=== PATIENT | male | born 1975 ===

== ENCOUNTER 2017-07-04 06:40 | Day surgery (SDC) | payer OTHER ==
[2017-07-04] VITALS (17 sets, daily range): BP systolic 116–147; BP diastolic 68–94
[~2017-07-04] VITALS: Ht 170.2 cm; Wt 90.7 kg
[~2017-07-04 06:40] MED LIST: NKM; ceFAZolin 1gm in D5W 55ml IVPB ONE; celeBREX 200mg Cap **SURGERY PATIENTS ONLY ORAL ONE; oxyCONTIN 20mg tab ORAL ONE
[2017-07-04] MEDS ORDERED: Bupivacaine 0.25% Inj 30ml INJ ONE (07:03)
[2017-07-04] MEDS ORDERED: Lidocaine 1% 10mg/ml/Epi 0.005mg/ml 30ml vial INJ ONE (07:04)
[2017-07-04] MEDS ORDERED: Kenalog-40 1ml Vial ONE (07:04)
[2017-07-04] MEDS ORDERED: Morphine Sulfate PF 10 ML ONE (07:04)
[2017-07-04] MEDS ORDERED: Ketorolac 30mg Inj ONE ×2 (07:04→09:00)
[2017-07-04] MEDS ORDERED: EPINEPHrine 1mg/1ml Amp ONE (07:04)
[2017-07-04] MEDS ORDERED: Propofol 200mg/20ml IV ONE ×2 (08:45→09:00)
[2017-07-04] MEDS ORDERED: Sterile Water Irrig 1000ml IRRIG ONE (09:00)
[2017-07-04] MEDS ORDERED: fentaNYL 100 mcg/2 mL IV ONE (09:00)
[2017-07-04] MEDS ORDERED: NS Irrig 1000ml ONE (09:00)
[2017-07-04] MEDS ORDERED: LR 1000ml ONE (09:00)
[2017-07-04] MEDS ORDERED: Midazolam 2mg/2ml Inj ONE (09:00)
[2017-07-04] MEDS ORDERED: LR 1000ml 1,000 ML IVLG SCH (09:26)
--- NOTE | 2017-07-04 09:26 | Anethesia Preoperative Eval ---
Anesthesia Pre-op PMH/ROS General Date of Evaluation: Jul 04, 2017 Time of Evaluation: 08:47 Anesthesiologist: Melonie ASA Score: ASA 2 Mallampati Score Class I : Soft palate, uvula, fauces, pillars visible Class II: Soft palate, uvula, fauces visible Class III: Soft palate, base of uvula visible Class IV: Only hard plate visible Mallampati Classification: Class II Surgeon: Trent Diagnosis: R knee pain Surgical Procedure: R knee scope Anesthesia History: none Family History: no anesthesia problems Allergies: Coded Allergies: No Known Allergies (Unverified , 07/04/17) Medications: see eMAR Past Medical History Cardiovascular: Denies: HTN, CAD, NH, valve dz, arrhythmia, other Pulmonary: Denies: asthma, COPD, BREANA, other Gastrointestinal/Genitourinary: Reports: GERD, Denies: CRI, ESRD, other Neurologic/Psychiatric: Reports: depression/anxiety, Denies: dementia, CVA, TIA, other Endocrine: Denies: DM, hypothyroidism, steroids, other HEENT: Denies: cataract (L), cataract (R), glaucoma, ANIAK (L), ANIAK (R), other Hematology/Immune: Denies: anemia, DVT, bleeding disorder, other Musculoskeletal/Integumentary: Denies: OA, RA, DJD, DDD, edema, other PMH Narrative: as above PSxH Narrative: none Anesthesia Pre-op Phys. Exam Physician Exam Last Vital Signs Date Time Temp Pulse Resp B/P (MAP) Pulse Ox O2 Delivery O2 Flow Rate FiO2 07/04/17 07:06 98.0 61 20 136/77 97 Room Air 98.0 Constitutional: NAD Neurologic: CN 2-12 intact Cardiovascular: RRR, no M/R/G Respiratory: CTA Gastrointestinal: S/NT/ND Airway Exam Mallampati Score: Class II MO: full Neck: flexible ROM: full Teeth: intact Dentures: no upper, no lower Anesthesia Pre-op A/P Labs see chart Risk Assessment & Plan Assessment: ASA 2 Plan: GA with LMA Status Change Before Surgery: No Pre-Antibiotics Drug: Ancef 1gr. Given Within 1 Hr of Incision: Yes Time Given: 09:22 MEIR CRUZ M.D. Jul 04, 2017 09:26
[2017-07-04] MEDS ORDERED: DiphenhydrAMINE 50mg/ml Inj IVP PRN (09:30)
[2017-07-04] MEDS ORDERED: Meperidine 50mg/ml Inj(FOR RIGORS ONLY) IV PRN (09:30)
[2017-07-04] MEDS ORDERED: Ketorolac 30mg Inj IV PRN (09:30)
[2017-07-04] MEDS ORDERED: Hydromorphone 0.5mg/0.5ml inj IVP PRN (09:30)
[2017-07-04] MEDS ORDERED: Duramorph PF 10mg/10ml amp EPIDUR ONE (09:32)
[2017-07-04] MEDS ORDERED: NS Irrig 4000ml IRRIG ONE (09:32)
[2017-07-04] MEDS ORDERED: Tylenol #3 tab (300mg/30mg) ORAL PRN (09:45)
--- NOTE | 2017-07-04 09:45 | Operative Note - PDOC ---
Operative Note Operative Note Pre-op Diagnosis: right knee medial meniscus tear Procedure: right knee medial meniscus tear Post-op Diagnosis: same as pre-op plus Operative Findings: consistent w/pre-op dx studies Anesthesia: MAC Specimen: none Complications: none Condition: stable Estimated Blood Loss: none Implant(s) used?: No IGNACIO MORALES Jul 04, 2017 09:45
--- NOTE | 2017-07-04 09:45 | Pre-Procedure Note/Attestation ---
Pre-Procedure Note/Attestation Complete Prior to Procedure Planned Procedure: right Procedure Narrative: knee arthroscopy medial menisectomy Indications for Procedure Pre-Operative Diagnosis: right knee medial meniscus tear Attestation I attest that I discussed the nature of the procedure; its benefits; risks and complications; and alternatives (and the risks and benefits of such alternatives ), prior to the procedure, with the patient (or the patient's legal digital sales representative). I attest that, if there was a reasonable possibility of needing a blood transfusion, the patient (or the patient's legal digital sales representative) was given the [facility] standardized written summary, pursuant to the Beny [place] [employer] Blood Safety Act ([place] Health and Safety Code # 1645, as amended). I attest that I re-evaluated the patient just prior to the surgery and that there has been no change in the patient's H&P, except as documented below: IGNACIO MORALES Jul 04, 2017 09:45
--- NOTE | 2017-07-04 10:00 | Immediate Post-Op Evaluation ---
Immediate Post-Op Evalulation Immediate Post-Op Evalulation Procedure: R knee arthroscopy meniscectomy Date of Evaluation: Jul 04, 2017 Time of Evaluation: 09:59 IV Fluids: 1000 Blood Products: none Estimated Blood Loss: min Urinary Output: none Blood Pressure Systolic: 133 Blood Pressure Diastolic: 83 Pulse Rate: 68 Respiratory Rate: 20 O2 Sat by Pulse Oximetry: 99 Temperature (Fahrenheit): 97.6 Pain Score (1-10): 2 Nausea: No Vomiting: No Complications none Patient Status: reacts, patent, none Hydration Status: adequate MEIR CRUZ M.D. Jul 04, 2017 10:00
--- NOTE | 2017-07-04 13:34 | 48 Hour Post Anesthesia Eval ---
Post Anesthesia Evaluation Procedure: R knee arthroscopy meniscectomy Date of Evaluation: Jul 04, 2017 Time of Evaluation: 13:33 Blood Pressure Systolic: 124 0: 68 Pulse Rate: 72 Respiratory Rate: 20 Temperature (Fahrenheit): 97.5 O2 Sat by Pulse Oximetry: 98 Airway: patent Nausea: No Vomiting: No Pain Intensity: 2 Hydration Status: adequate Cardiopulmonary Status: stable Mental Status/LOC: patient returned to baseline Follow-up Care/Observations: n/a Post-Anesthesia Complications: none Follow-up care needed: ready to discharge MEIR CRUZ M.D. Jul 04, 2017 13:34
[2017-07-04] MEDS ORDERED: Norco 5mg/325mg tab ORAL PRN (16:01)
[2017-07-04] MEDS ORDERED: D5 1/2NS 1,000 ML IV SCH (16:01)
[2017-07-04] MEDS ORDERED: HYDROmorphone 1mg/ml Carpuject SUBQ PRN (16:01)
--- NOTE | 2017-07-04 17:15 | Operative Note - Dictated ---
DATE OF OPERATION: 07/04/2017 PREOPERATIVE DIAGNOSIS: Right knee traumatic medial meniscus tear. POSTOPERATIVE DIAGNOSIS: Right knee traumatic medial meniscus tear. PROCEDURES: 1. Right knee arthroscopic partial medial meniscectomy. 2. Synovectomy, medial and patellofemoral compartments. SURGEON: Nitish Newman M.D. ANESTHESIA: MAC. INDICATION FOR PROCEDURE: The patient is a pleasant 42-year-old gentleman with progressive right knee pain, had MRI, which showed a meniscal tear. Therefore, we elected to undergo right knee arthroscopic medial meniscectomy after he failed conservative treatment. Risks, limitations, expectations, and complications of procedure were discussed in detail. All questions were addressed. DESCRIPTION OF PROCEDURE: An informed consent was obtained. The patient was brought to the operative room and placed the patient under monitored anesthesia. Ancef was administered. Time-out was performed. Intraarticular injection containing 0.25% Marcaine was injected into the knee. Portal sites were injected with 0.25% Marcaine with epinephrine. An Esmarch was used to exsanguinate the extremity. Inferolateral stab incision was then made. There is hypertrophic synovial tissue in the patellofemoral compartment. Medial compartment was entered. There was a tear of the posterior horn of the medial meniscus. Partial medial meniscectomy of the posterior horn of the medial meniscus was performed down to a stable rim of tissue. Once that was done, the synovectomy in the medial intercondylar notch was performed to better visualize the ACL, which was probed and noted to be intact. Lateral compartment was entered, free of any meniscal chondral damage. Camera was repositioned. Patellofemoral compartment synovectomy was completed. The patient was then awoken and taken to recovery with stable vital signs. ESTIMATED BLOOD LOSS: Minimal. COMPLICATIONS: None. SPECIMENS: None. IMPLANTS: None. Nitish Newman M.D. DR: JOSE J JOB#: [id number] CC:
== END 2017-07-04 13:30 | disposition home or self-care (01) ==
LOC: SUR 06:40
DX: S83.241A Other tear of medial meniscus, current injury, right knee, initial encounter (principal); X58.XXXA Exposure to other specified factors, initial encounter; Y93.9 Activity, unspecified; Y92.9 Unspecified place or not applicable; K21.9 Gastro-esophageal reflux disease without esophagitis; F32.9 Major depressive disorder, single episode, unspecified; F41.9 Anxiety disorder, unspecified
CPT/HCPCS: 29876; 29881; 97161; J0171; J0690; J1885; J2250; J2274; J2704; J3010; J3301; J3490; J7120; 94003; 94150